=== PATIENT | female | born 1960 | race Caucasian/White ===

== ENCOUNTER 2019-10-26 21:45 | Inpatient (IN) | payer MEDICAID, OTHER ==
[2019-10-27 01:22] VITALS: BP 126/74
[2019-10-27] MEDS ORDERED: Magnesium Hydroxide (MOM) 30 mL UDC PO PRN (01:26)
[2019-10-27] MEDS ORDERED: Acetaminophen 500 MG TAB PO PRN (01:26)
[2019-10-27] MEDS: Multivitamin Tab PO SCH (08:54)
--- NOTE | 2019-10-27 12:04 | History & Physical ---
ADMIT DATE: 10/27/2019 CHIEF COMPLAINT: Nausea, vomiting. HISTORY OF PRESENT ILLNESS: We have a 59-year-old female with alcohol abuse, depression, is transferred here for intractable nausea, vomiting and abdominal pain. The patient denies any diarrhea or rectal bleeding. The patient was binge drinking and felt depressed. PAST MEDICAL HISTORY: None. PAST SURGICAL HISTORY: Breast implants. MEDICATIONS: List reviewed. ALLERGIES: None. SOCIAL HISTORY: Tobacco, IV drugs negative. The patient drinks alcohol. PHYSICAL EXAMINATION: VITAL SIGNS: Temperature 98.7, pulse 90, respirations 20, blood pressure 126/82, satting 96% on room air. HEENT: Normocephalic, atraumatic head exam. NECK: Supple. CARDIOVASCULAR: Regular rate and rhythm. LUNGS: Decreased breath sounds. ABDOMEN: Soft, nontender. EXTREMITIES: No edema, cyanosis or clubbing. CN exam is grossly intact ASSESSMENT AND PLAN: 1. Nausea, vomiting, and abdominal pain. 2. Alcohol withdrawal and dependency. 3. Depression. The patient will get CBC, CMP. We will start the patient on thiamine 100 mg p.o. daily. The patient will be started on Librium 25 mg p.o. b.i.d. JOB# [id number] CINDA
[2019-10-27 15:40] LABS: HEMOGLOBIN 13.5 g/dL (12.0-16.0); MEAN CORPUSCULAR HEMOGLOBIN 28 pg (27-31); MEAN CORPUSCULAR HGB CONC 32 % (32-36); MEAN CORPUSCULAR VOLUME 88 fL (79.0-98.0); RED BLOOD COUNT 4.79 MIL/uL (4.2-6.2); RED CELL DISTRIBUTION WIDTH 17.6 % (9.0-15.0); WHITE BLOOD COUNT 3.3 K/uL (4.8-10.8)
[2019-10-27 15:41] LABS: % NEUTROPHILS 65.2 % (40-70); BASOPHILS % (AUTO) 0.4 % (0.0-2.0); EOSINOPHILS # (AUTO) 0.1 K/uL (0.0-0.4); EOSINOPHILS % (AUTO) 1.9 % (0-4); LYMPHOCYTES # (AUTO) 0.8 K/uL (1.0-5.5); LYMPHOCYTES % (AUTO) 25.5 % (20.5-51.5); MONOCYTES # (AUTO) 0.2 K/uL (0.0-1.0); NEUTROPHILS # (AUTO) 2.1 K/uL (1.8-7.7); PLATELET COUNT 141 K/uL (130-430)
[2019-10-27 16:52] LABS: TRIGLYCERIDES 40 mg/dL (30-150)
[2019-10-27 16:53] LABS: CHOLESTEROL 226 mg/dL (<200); LDL CHOLESTEROL 92 mg/dL (0-129)
--- NOTE | 2019-10-28 01:51 | Psychiatric Evaluation ---
DATE OF SERVICE: 10/27/2019 IDENTIFYING INFORMATION: The patient is a 59-year-old female. CHIEF COMPLAINT: The patient was on hold for danger to self. HISTORY OF PRESENT ILLNESS: The patient was on a hold for danger to self. Apparently, the patient called 911. She was throwing up. She was using alcohol. Apparently, she may have told them that she was trying to harm herself. The patient reports she was throwing up. She also complained of stomach pain, was vomiting blood. She was seen by Dr. Austin. When I talked to her, she was minimizing how much she is drinking because apparently, she told Dr. Austin, she is drinking 1 pint daily for a few days; however, when I asked her, she says she drank maybe binges twice a month, the last drink was 5 days ago, which is not correct. The patient also has been depressed. She has been on medication for depression; however, she reports that she has never seen a psychiatrist only her primary care physician that she get depressed once in a while. She reported no prior suicide attempts, never been hospitalized before. She also reports she takes some medication for sleep, she does not know what it is. She admits to having mood swings when she is drinking, she sleeps well if she takes medication. Appetite is okay. She lost weight and currently weighs 125 pounds. She denies any eating disorder. Denies any visual hallucination or paranoia. Denies any current intent to harm herself or anyone. PAST PSYCHIATRIC HISTORY: The patient reported never been hospitalized, never has tried to harm herself in the past, but she has long history of using alcohol for a long time since she was very young and she has a history of being sober for 2 months and now she is seeing a therapist. SUBSTANCE ABUSE: Using alcohol, she told me she binged twice a month; however, consulted Dr. Austin, she used more often like once a day. The patient reported no prior suicide attempt. Never had any other auditory or visual hallucination or paranoia. Never had any mood swings, although she was using alcohol. No manic episodes. No gambling problem. No legal problem. No obsessive behavior. MEDICAL HISTORY: As per Dr. Austin. The patient has been having nausea and vomiting. ALLERGIES: No known drug allergy. MEDICATIONS: The patient is also on Prozac daily. FAMILY AND SOCIAL HISTORY: The patient is engaged for 2 years. Her fiance is 70 years of age. He is an ex-agricultural aircraft pilot, treats her like a mendes. The patient reports she has one boy, 32 years of age. She has not talked to him for years because she was drunk and she was mean to him. She reported no family psychotic disorder. She has been . 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 Denies any history of abuse. MENTAL STATUS EXAMINATION: The patient is appropriately dressed, appropriately groomed. Mood is depressed. Affect is sad. Thoughts are clear. Speech is clear. She is alert and oriented to place, person, time, and situation. She reports increasing depression; however, to get worse when she drinks, she gets goldberg, irritable. She reported in general, she sleeps well. She eats well, but she lost weight. she may have lost weight. She currently weighs 125 pounds and denies eating disorder. Denies having any auditory or visual hallucination or paranoia. She denies any intent to harm herself. She seems of average intelligence just by able to give information. Fund of knowledge, knowledge of the [employer]. Concentration is fair. She is able to answer questions appropriately and spells her first name forward and backward. Long-term is good for age and date of . Recent memory is good. She remembers events that are coming here, what she ate her breakfast. Immediate memory .can remember 3/3 in 5 minutes. Insight about her illness is fair. judgement is poor due to her drinking. IMPRESSION: Major depression, recurrent, with no psychosis, chronic alcohol dependence. MEDICAL DIAGNOSIS: Deferred to Dr. Austin. Her assets, she wants to get help. She is intelligent. She has a supportive fiancee. Negative poor coping skills, drinking alcohol. PLAN: The patient will be continued with the Prozac and was started on detox protocol. We will do group therapy, milieu therapy, and individual therapy. ESTIMATED LENGTH OF STAY: 3-7 days. DISCHARGE CRITERIA: Feeling better, no longer suicidal after discharge. JOB# [id number] [facility]
[2019-10-28 05:14] LABS: A1C 5.1 % (4.8-5.6)
[2019-10-28] MEDS: Multivitamin Tab PO SCH (08:28)
--- NOTE | 2019-10-28 21:32 | Progress Notes ---
DATE: 10/28/2019 PSYCHIATRIC FOLLOWUP NOTE Covering for Dr. Unger. IDENTIFYING DATA: A 59-year-old female, brought in here ____ 911. She was throwing up. She was using alcohol. She was trying to harm herself. Today on [id number] evaluation, very withdrawn, disengaged, ____ reporting that she was using alcohol to cope with her stressors, currently on Prozac. MENTAL STATUS EXAMINATION: Withdrawn, disengaged, poor insight. ASSESSMENT AND PLAN: Major depressive disorder, comorbid alcohol use disorder. We will continue with the Librium protocol and titrate her off. Overall, we will monitor for withdrawal symptoms. JOB# [id number]
[2019-10-29] MEDS: Multivitamin Tab PO SCH (08:17)
--- NOTE | 2019-10-29 10:06 | Progress Notes ---
DATE: 10/29/2019 SUBJECTIVE: On [id number] evaluation, avoiding, does not want to talk about the recent suicide gestured attempt. She reports she was intoxicated, feeling depressed. Reports that she has attempted to cope with her depression with the alcohol. Continues to present her with poor insight. MENTAL STATUS EXAMINATION: Depressed, poor insight as evident by coping with her alcohol ____ minimal to no ramification. ASSESSMENT AND PLAN: MDD, alcohol use disorder. We will continue monitoring for withdrawal symptoms with the overall plan to take her off the benzodiazepines once further psychiatrically stabilized. JOB# [id number]
[2019-10-30] MEDS: Multivitamin Tab PO SCH (08:13)
--- NOTE | 2019-10-30 12:05 | Progress Notes ---
DATE: 10/30/2019 Case was discussed with staff of the patient, reviewed records. The patient is doing much better. She is alert, oriented to place, person, time, and situation. She understands the risk of using to place, person, time, and situation, understand the risk of using alcohol. The patient is much more stable. Working on discharge plan. No side effects with the medication, no sedation, no nausea. She is doing well on the Prozac 10 mg a day. We will continue outpatient group therapy, milieu therapy, and adjust the medication as needed. JOB# [id number]
[2019-10-31] MEDS: Multivitamin Tab PO SCH (08:22)
--- NOTE | 2019-10-31 20:10 | Discharge Summary ---
DATE OF DISCHARGE: 10/31/2019 IDENTIFYING INFORMATION: The patient is a 59-year-old female. CHIEF COMPLAINT: The patient is on a hold for danger to self. HISTORY OF PRESENT ILLNESS: The patient was admitted on a hold for danger to self. The family called 911. She was throwing up. She was using alcohol. She told them that she was trying to harm herself, so she was throwing up. She also complained of stomach pain, was vomiting blood. She was seen by Dr. Austin, who cleared her medically. She was minimizing how much she was drinking because apparently she told doctor that she was drinking 1 pint daily for a few days. When I asked her, she says she drank maybe binges twice a month, last drink was 5 days prior, which does not make sense. The patient also has been depressed. She has been on medication for depression. She reported that she has never seen a psychiatrist, only her primary care physician. She gets depressed once in a while. She has had no prior suicide attempts, never been hospitalized before. She takes some medication for sleep, does not know what it is. Having mood swings when she is drinking. She sleeps well if she takes medication. Appetite is okay. Lost weight, currently weighs 125 pounds. She denies any eating disorder. Denies any visual hallucination or paranoia. Denies any current intent to harm herself or anyone. Has been never hospitalized. Never tried to harm herself. COURSE IN THE HOSPITAL: The patient was started on detox protocol for alcohol using Librium, folic acid, thiamine, gabapentin 300 mg 3 times a day and Prozac was added 10 mg daily ____ she took it. Added the gabapentin ____ seizure. The patient progressively felt better. She was sleeping well, eating well. She denies any intent to harm herself or anyone from the very beginning. She has a fiance and they were together for a long time. She is very happy with him. So, as she improved, she was not showing any symptoms of detox, she was sleeping well, eating well, felt she could be discharged to a lesser level of care. The patient can function well socially, take care of her ADLs. She was always working, exercising, very pleasant and cooperative. FINAL DIAGNOSES: Major depression, recurrent, severe, no psychosis, chronic alcohol dependence. MEDICAL DIAGNOSIS: Deferred to Dr. Austin. FOLLOWUP: The patient will follow up with the psychiatrist, primary care physician and therapist and a CD program. EXPECTED OUTCOME: Stable if the patient complies with the plan. JOB# [id number]
== END 2019-10-31 15:45 | disposition home or self-care (01) | DRG 885 ==
LOC: GERO 10-27 00:25
PROVIDERS: ADMIT Psychiatry & Neurology Psychiatry; ATTEND Psychiatry & Neurology Psychiatry
DX: F33.2 Major depressive disorder, recurrent severe without psychotic features (principal); F10.239 Alcohol dependence with withdrawal, unspecified; E44.1 Mild protein-calorie malnutrition; Z68.1 Body mass index [BMI] 19.9 or less, adult; R11.2 Nausea with vomiting, unspecified; R10.9 Unspecified abdominal pain; Y90.9 Presence of alcohol in blood, level not specified
CPT/HCPCS: 36415-UA; 80061-TC; 83036-90; 84443-TC; 85025-TC; 90899; G0410; J2060; Z7610